=== PATIENT | male | born 1975 | race Caucasian/White ===

== ENCOUNTER → 2021-08-14 19:03 | Outpatient (CLI) | payer BC, SELFPAY ==
[2021-08-14 19:30] LABS: Adenovirus,PCR Not Detected (NotDetected); Bordetella Pertussis Not Detected (NotDetected); Chlamydophila Pneumoniae, PCR Not Detected (NotDetected); Coronavirus 19, PCR Not Detected (NotDetected); Coronavirus 229E Not Detected (NotDetected); Coronavirus NL63 Not Detected (NotDetected); Coronavirus OC43 Not Detected (NotDetected); Coronovirus HKU1,PCR Not Detected (NotDetected); Human Metapneumovirus Not Detected (NotDetected); Influenza A, PCR Not Detected (NotDetected); Influenza AH1, 2009 Not Detected (NotDetected); Influenza AH1, PCR Not Detected (NotDetected); Influenza AH3,PCR Not Detected (NotDetected); Influenza B, PCR Not Detected (NotDetected); Mycoplasma Pneumoniae, PCR Not Detected (NotDetected); Parainfluenza 1, PCR Not Detected (NotDetected); Parainfluenza 2, PCR Not Detected (NotDetected); Parainfluenza 3, PCR Not Detected (NotDetected); Parainfluenza 4, PCR Not Detected (NotDetected); Respiratory Syncytial Virus Not Detected (NotDetected); Rhinovirus/Enterovirus Not Detected (NotDetected)
== END ==
PROVIDERS: PCP Family Medicine; Visit Provider Family Medicine
DX: Z20.822 Contact with and (suspected) exposure to COVID-19 (principal)
CPT/HCPCS: 87581; 87632; 87798; C9803; U0003; U0005

== ENCOUNTER → 2021-09-15 09:21 | Outpatient (CLI) | payer BC, SELFPAY | PROVIDERS: Visit Provider Nurse Practitioner | DX: U07.1 COVID-19 (principal) | CPT/HCPCS: C9803; U0003; U0005 ==

== ENCOUNTER 2025-03-11 19:13 | Observation (INO) | payer BC, SELFPAY ==
[2025-03-11 19:28] VITALS: BP 174/106; PULSE 118; RESP 16; TEMP 37.1; O2SAT 95; BMI 38.9
--- NOTE | 2025-03-11 19:37 | CT_ITS ---
PROCEDURE INFORMATION: Exam: CT Abdomen And Pelvis With Contrast Exam date and time: 03/11/2025 8:51 PM Age: 49 years old Clinical indication: Abdominal pain; Additional info: Left sided abdominal pain TECHNIQUE: Imaging protocol: Computed tomography of the abdomen and pelvis with contrast. Radiation optimization: All CT scans at this facility use at least one of these dose optimization techniques: automated exposure control; mA and/or kV adjustment per patient size (includes targeted exams where dose is matched to clinical indication); or iterative reconstruction. Contrast material: ISOVUE; Contrast volume: 75 ml; Contrast route: IV; COMPARISON: No relevant prior studies available. FINDINGS: Lungs: Imaging through the visualized lung gillespie demonstrates mild bibasilar subsegmental atelectasis. Liver: Moderate diffuse hepatic steatosis is identified. Gallbladder and biliary ducts: Normal. No calcified stones. No ductal dilation. Pancreas: The pancreas is normal. Spleen: The spleen is normal. Adrenal glands: The adrenal glands appear within normal limits. Kidneys and ureters: The kidneys are normal. 1 mm nonobstructing stone right kidney. Stomach and bowel: There are changes of acute diverticulitis involving the sigmoid colon . No evidence of perforation or abscess. Appendix: No evidence of appendicitis. Intraperitoneal space: No free air. No evidence for focal fluid collection or ascites. No evidence for omental thickening. Vasculature: Unremarkable. No abdominal aortic aneurysm. Lymph nodes: Unremarkable. No enlarged lymph nodes. Urinary bladder: The bladder appears within normal limits. No wall thickening. Reproductive: Unremarkable as visualized. Bones/joints: The regional skeletal structures appear within normal limits for age. Soft tissues: Unremarkable. IMPRESSION: There are changes of acute diverticulitis involving the sigmoid colon. No evidence of perforation or abscess.
--- NOTE | 2025-03-11 19:39 | ED_ITS ---
<Statement entered by Alma Rosales DO - 03/12/25 00:00> I was consulted by the GINA, and we discussed the complexity of the problems being addressed. I approved the treatment and management plan for this patient's care in the emergency department, thus performing a substantive portion of the medical decision making. I independently interpreted CT scan prior to radiology read and noted significant diverticulitis with a lot of fat stranding but no evidence of perforation or abscess. White blood cell count is elevated, patient remains tachycardic and significant pain after pain control was administered IV. Given this, I feel he would benefit from admission. I started him on IV Zosyn and ordered maintenance IV fluids. I had an interactive discussion with Dr. Guillaume who admitted the patient in stable condition Alma Rosales DO Discharge Plan Disposition Chief Complaint: Abdominal Pain Referrals Follow up/Referrals: Darrel Guillaume MD [Primary Care Provider, Medical] - See instructions Instructions Patient Instructions: DI for Acute Abdominal Pain Print Language Print Language: Kazakh Discharge ED Provider: Alma Rosales General Adult HPI <Veronica Calhoun (ED), PULMONARY PHYSICAL THERAPIST - Last Filed: 03/11/25 21:50> General Chief complaint: Abdominal Pain Stated complaint: Stomach pain,Nausea Time Seen by Provider: 03/11/25 19:30 Mode of Arrival: Family Vehicle Source of Information: Patient Description of Symptoms (Recalled from ER Triage Doc. by RN): Abd pain Pt presents to the ED with c/o LLQ abd pain accompanied by nausea. Pt reports that he was getting up fropm the couch and felt something pop in his abd. History of Present Illness HPI narrative: 49-year-old male presents to the ED today with complaint of the left lower quadrant abdominal pain. He also has nausea. He says he got up from the couch and felt something pop and immediately had this abdominal pain. He says he had abdominal pain earlier today but got up and had normal bowel movement and felt better and then this left side popped. He says it might be a muscle. But he is unsure. He does have hypertension and took his blood pressure medicine about 5 minutes before he came to the ER. He tells me that he does have whitecoat syndrome and is nervous. He denies any fevers or chills. No vomiting or diarrhea. No other symptoms. Related Data Allergies Allergy/AdvReac Type Severity Reaction Status Date / Time Sulfa (Sulfonamide AdvReac Anaphylaxis Verified 03/11/25 19:33 Antibiotics) [facility] <Veronica Calhoun (ED), PULMONARY PHYSICAL THERAPIST - Last Filed: 03/11/25 21:50> [facility] Disclaimer: The information contained in this section may have been updated after the patient was seen, as this information can be updated by other users. Medical History (Updated 03/11/25 @ 19:34 by Cydney Salomon RN) Hypertension Surgical History (Updated 03/11/25 @ 19:34 by Cydney Salomon RN) History of appendectomy Social History Smoking Status: Never smoker alcohol intake: never current occupational status: other Travel in the last 8 weeks?: None <Veronica Calhoun (ED), PULMONARY PHYSICAL THERAPIST - Last Filed: 03/11/25 21:50> ROS Obtained: Yes Systems reviewed as appropriate & no additional complaints except as documented Constitutional Constitutional: Reports as per HPI Physical Exam <Veronica Calhoun (ED), PULMONARY PHYSICAL THERAPIST - Last Filed: 03/11/25 21:50> General General appearance: alert, anxious and in distress Head Head exam: atraumatic and normocephalic Eye Eye exam: Present normal appearance, PERRL and EOMI ENT ENT exam: Present normal oropharynx and mucous membranes moist Neck Neck exam: Present full ROM and trachea midline Respiratory Respiratory exam: Present normal lung sounds bilaterally Cardiovascular Cardiovascular exam: Present normal rhythm, tachycardia, normal heart sounds, +S1 and +S2 Abdominal Exam Abdominal exam: Present soft, tenderness (Left lower quadrant) and normal bowel sounds Extremities Exam Extremities exam: Present normal inspection, full ROM and normal capillary refill Neurological Exam Neurological exam: Present alert, oriented X3 and normal gait Skin Skin exam: Present warm, dry and intact Medical Decision Making <Veronica Calhoun (ED), PULMONARY PHYSICAL THERAPIST - Last Filed: 03/11/25 21:50> Medical Records Medical records reviewed: Yes I reviewed the patient's medical records. Screening: Per USPSTF and CDC recommendations, given the prevalence of disease in our region, it is our hospital?s policy to screen for HIV and viral Hepatitis for all patients aged 18 and over and those with ongoing risk factors. Serafin Inquiry Pt receiving controlled substance: No Serafin was queried for this patient: No Vital Signs: 03/11/25 19:28 03/11/25 20:02 Temperature 98.8 F Temperature Source Oral Pulse Rate 103 H Pulse Rate [Right] 118 H Respiratory Rate 16 Blood Pressure [Right Arm] 174/106 H Blood Pressure Mean [Right Arm] 128 Blood Pressure Source [Right Arm] Automatic Cuff Blood Pressure Position [Right Arm] Sitting 02 Sat by Pulse Oximetry 95 94 L Oxygen Delivery Method Room Air Lab Data Lab Results 03/11/25 19:55: WBC 15.4 H, RBC 5.14, Hgb 15.4, Hct 44.3, MCV 86.2, MCH 30.0, MCHC 34.8, RDW 12.7, Plt Count 210, MPV 9.7, Neut % (Auto) 82.6 H, Lymph % (Auto) 8.3 L, [place] % (Auto) 8.1, Eos % (Auto) 0.3, Baso % (Auto) 0.2, Neut # (Auto) 12.7 H, Lymph # (Auto) 1.3, [place] # (Auto) 1.2 H, Eos # (Auto) 0.0, Baso # (Auto) 0.0, ESR 18, Sodium 135 L, Potassium 4.0, Chloride 97 L, Carbon Dioxide 23, Anion Gap 19.0 H, BUN 18, Creatinine 0.90, Estimated Creat Clear 174, Estimated GFR 89, Est GFR ( Amer) 108, Glucose 152 H, Calcium 9.9, Magnesium 1.6, Total Bilirubin 1.3, AST 33, ALT 47, Alkaline Phosphatase 77, Troponin I < 0.01, C-Reactive Protein 39.8 H, Total Protein 8.2, Albumin 4.9, G lobulin 3.3 H, Albumin/Globulin Ratio 1.5, Lipase 99, HCV Ab REY w/Rflx PCR Qn Negative, HIV Ag/Ab Combo Qual Negative 03/11/25 21:15: Urine Color Yellow, Urine Appearance Clear, Urine pH 6.0, Ur Specific [place] <= 1.005, Urine Protein Negative, Urine Glucose (UA) Negative, Urine Ketones Trace, Urine Blood Negative, Urine Nitrate Negative, Urine Bilirubin Negative, Urine Urobilinogen 0.2, Ur Leukocyte Esterase Negative 03/11/25 19:55 03/11/25 19:55 Orders (Tests/Meds): ED MEDICATIONS Generic Name Dose Route Start Last Admin Trade Name Stacy PRN Reason Stop Dose Admin Morphine Sulfate 4 mg 03/11/25 21:43 Morphine 4mg/Ml Syringe IV 03/11/25 21:44 ONCE ONE Sodium Chloride 10 ml 03/11/25 20:50 03/11/25 20:51 Sodium Chloride 0.9% 10ml Syr (Rad Only) IV 04/10/25 20:49 10 ml NEEDED PRN Administration Maintain IV Site Discontinued Medications Generic Name Dose Route Start Last Admin Trade Name Stacy PRN Reason Stop Dose Admin Sodium Chloride 1,000 mls @ 999 mls/hr 03/11/25 19:36 03/11/25 19:59 Sod Chlor 0.9% 1000ml Bag IV 03/11/25 20:36 999 mls/hr .Q1H1M ONE Administration Iopamidol 75 ml 03/11/25 20:50 03/11/25 20:51 Iopamidol-370 (76%);100ml Bottle IV 03/11/25 20:51 75 ml ONCE ONE Administration Ketorolac Tromethamine 30 mg 03/11/25 19:36 03/11/25 19:58 Ketorolac 30mg/Ml Vial IV 03/11/25 19:37 30 mg ONCE ONE Administration Ondansetron HCl 4 mg 03/11/25 19:36 03/11/25 20:00 Ondansetron 4mg/2ml Vial IV 03/11/25 19:37 4 mg ONCE ONE Administration ORDERS Category Date Time Status CT abdomen pelvis w con Stat Cat Scan 03/11/25 19:37 Taken CBC [Complete Blood Count Auto Diff] Stat Lab 03/11/25 19:55 Completed CRP [C-Reactive Protein] Stat Lab 03/11/25 19:55 Completed Comprehensive Metabolic Panel Stat Lab 03/11/25 19:55 Completed Erythrocyte Sedimentation Rate Stat Lab 03/11/25 19:55 Completed HIV Combo Stat Lab 03/11/25 19:55 Received Hepatitis C Ab Qual. W/ RFX Stat Lab 03/11/25 19:55 Received Lipase Stat Lab 03/11/25 19:55 Completed Magnesium Stat Lab 03/11/25 19:55 Completed Trop I [Troponin I] Stat Lab 03/11/25 19:55 Completed Troponin I Q3H Lab 03/11/25 22:45 Ordered Troponin I Q3H Lab 03/12/25 01:45 Ordered Urinalysis and Microscopic Stat Lab 03/11/25 21:15 Results Medical Decision Narrative: patient is a 49-year-old male presenting to the emergency department for evaluation of left-sided abdominal pain. Patient is hemodynamically stable, however slightly elevated blood pressure heart rate is elevated due to pain and nontoxic-appearing upon arrival, afebrile. Differential diagnosis includes diverticulitis, muscle pull, gastritis, enteritis, among other things. Workup will be conducted with hematologic labs, specific imaging, . Initial inventions include crystalloid bolus, analgesics. Initial workup reviewed by me hematologic labs are remarkable for elevated white count at 15.4. Imaging informally interpreted by me and remarkable for what appears to be diverticulitis. I am still waiting on the formal imaging read. Have discussed this case with Dr. Rosales she will be taking over care. <Alma Rosales, DO - Last Filed: 03/11/25 21:39> Vital Signs: 03/11/25 19:28 03/11/25 20:02 Temperature 98.8 F Temperature Source Oral Pulse Rate 103 H Pulse Rate [Right] 118 H Respiratory Rate 16 Blood Pressure [Right Arm] 174/106 H Blood Pressure Mean [Right Arm] 128 Blood Pressure Source [Right Arm] Automatic Cuff Blood Pressure Position [Right Arm] Sitting 02 Sat by Pulse Oximetry 95 94 L Oxygen Delivery Method Room Air Lab Data Lab Results 03/11/25 19:55: WBC 15.4 H, RBC 5.14, Hgb 15.4, Hct 44.3, MCV 86.2, MCH 30.0, MCHC 34.8, RDW 12.7, Plt Count 210, MPV 9.7, Neut % (Auto) 82.6 H, Lymph % (Auto) 8.3 L, [place] % (Auto) 8.1, Eos % (Auto) 0.3, Baso % (Auto) 0.2, Neut # (Auto) 12.7 H, Lymph # (Auto) 1.3, [place] # (Auto) 1.2 H, Eos # (Auto) 0.0, Baso # (Auto) 0.0, ESR 18, Sodium 135 L, Potassium 4.0, Chloride 97 L, Carbon Dioxide 23, Anion Gap 19.0 H, BUN 18, Creatinine 0.90, Estimated Creat Clear 174, Estimated GFR 89, Est GFR ( Amer) 108, Glucose 152 H, Calcium 9.9, Magnesium 1.6, Total Bilirubin 1.3, AST 33, ALT 47, Alkaline Phosphatase 77, Troponin I < 0.01, C-Reactive Protein 39.8 H, Total Protein 8.2, Albumin 4.9, G lobulin 3.3 H, Albumin/Globulin Ratio 1.5, Lipase 99, HCV Ab REY w/Rflx PCR Qn Negative, HIV Ag/Ab Combo Qual Negative 03/11/25 21:15: Urine Color Yellow, Urine Appearance Clear, Urine pH 6.0, Ur Specific [place] <= 1.005, Urine Protein Negative, Urine Glucose (UA) Negative, Urine Ketones Trace, Urine Blood Negative, Urine Nitrate Negative, Urine Bilirubin Negative, Urine Urobilinogen 0.2, Ur Leukocyte Esterase Negative Orders (Tests/Meds): ED MEDICATIONS Generic Name Dose Route Start Last Admin Trade Name Freq PRN Reason Stop Dose Admin Morphine Sulfate 4 mg 03/11/25 21:43 Morphine 4mg/Ml Syringe IV 03/11/25 21:44 ONCE ONE Sodium Chloride 10 ml 03/11/25 20:50 03/11/25 20:51 Sodium Chloride 0.9% 10ml Syr (Rad Only) IV 04/10/25 20:49 10 ml NEEDED PRN Administration Maintain IV Site Discontinued Medications Generic Name Dose Route Start Last Admin Trade Name Freq PRN Reason Stop Dose Admin Sodium Chloride 1,000 mls @ 999 mls/hr 03/11/25 19:36 03/11/25 19:59 Sod Chlor 0.9% 1000ml Bag IV 03/11/25 20:36 999 mls/hr .Q1H1M ONE Administration Iopamidol 75 ml 03/11/25 20:50 03/11/25 20:51 Iopamidol-370 (76%);100ml Bottle IV 03/11/25 20:51 75 ml ONCE ONE Administration Ketorolac Tromethamine 30 mg 03/11/25 19:36 03/11/25 19:58 Ketorolac 30mg/Ml Vial IV 03/11/25 19:37 30 mg ONCE ONE Administration Ondansetron HCl 4 mg 03/11/25 19:36 03/11/25 20:00 Ondansetron 4mg/2ml Vial IV 03/11/25 19:37 4 mg ONCE ONE Administration ORDERS Category Date Time Status CT abdomen pelvis w con Stat Cat Scan 03/11/25 19:37 Taken CBC [Complete Blood Count Auto Diff] Stat Lab 03/11/25 19:55 Completed CRP [C-Reactive Protein] Stat Lab 03/11/25 19:55 Completed Comprehensive Metabolic Panel Stat Lab 03/11/25 19:55 Completed Erythrocyte Sedimentation Rate Stat Lab 03/11/25 19:55 Completed HIV Combo Stat Lab 03/11/25 19:55 Received Hepatitis C Ab Qual. W/ RFX Stat Lab 03/11/25 19:55 Received Lipase Stat Lab 03/11/25 19:55 Completed Magnesium Stat Lab 03/11/25 19:55 Completed Trop I [Troponin I] Stat Lab 03/11/25 19:55 Completed Troponin I Q3H Lab 03/11/25 22:45 Ordered Troponin I Q3H Lab 03/12/25 01:45 Ordered Urinalysis and Microscopic Stat Lab 03/11/25 21:15 Results ECG Data Tracing #1: I reviewed this ECG and interpreted as documented below: Sinus tachycardia with a ventricular rate of [address] changes concerning for ischemia. Moderate intraventricular conduction delay ECG initial impression date: 03/11/25 ECG initial impression time: 19:48 Critical Care <Veronica Calhoun (ED), PULMONARY PHYSICAL THERAPIST - Last Filed: 03/11/25 21:50> Critical Care Time Critical Care Time: No
--- NOTE | 2025-03-11 19:46 | ECG_ITS ---
APPROVED REPORT Exam: Resting ECG HR:102 bpm ECG Measurements Heart Rate 102 AXES SC 195 P 44 QRSd 113 QRS 63 QT 329 T 35 QTc 388 Conclusion SINUS TACHYCARDIA MODERATE INTRAVENTRICULAR CONDUCTION DELAY [110+ ms QRS DURATION] No STEMI Electronically signed by : SERGIO BUSBY, 03/12/2025 00:09:44
[2025-03-11] MEDS: KETOROLAC 30MG/ML VIAL 30 MG IV (19:58)
[2025-03-11] MEDS: 0.9 % SODIUM CHLORIDE 1000ML 1,000 ML 999 ML IV (19:59)
[2025-03-11] MEDS: ONDANSETRON 4MG/2ML VIAL 4 MG IV (20:00)
[2025-03-11 20:02] VITALS: PULSE 103; O2SAT 94
[2025-03-11 20:06] LABS: Hematocrit 44.3 % (42.0-52.0); Hemoglobin 15.4 g/dL (14.1-18.0); Immature Granulocytes % 0.5 %; Mean Corpuscular HGB Conc 34.8 g/dL (31.8-35.4); Mean Corpuscular Hemoglobin 30.0 pg (27.0-31.2); Mean Corpuscular Volume 86.2 fl (80-94); Nucleated Red Blood Cells % 0 %; Platelet Count 210 K/mm3 (142-424); Red Blood Count 5.14 M/mm3 (4.60-6.20); Red Cell Distribution Width-SD 39.7 fL; White Blood Count 15.4 K/mm3 (4.8-10.8)
[2025-03-11 20:20] LABS: Alanine Aminotransferase 47 U/L (12-78); Albumin Level 4.9 g/dl (3.5-5.0); Albumin/Globulin Ratio 1.5 (1.1-1.8); Alkaline Phosphatase 77 U/L (38-126); Anion Gap 19.0 mEq/L (5-15); Aspartate Amino Transferase 33 U/L (17-59); Bilirubin,Total 1.3 mg/dl (0.2-1.3); Blood Urea Nitrogen 18 mg/dl (9-20); Calcium 9.9 mg/dl (8.4-10.2); Carbon Dioxide 23 mmol/L (22.0-30.0); Chloride 97 mmol/L (98-107); Creatinine Clearance Estimated 174 mL/min (50-200); Creatinine,Serum 0.90 mg/dl (0.66-1.25); Estimated Glomerular Filt Rate 89 ml/min (>60); GFR (African American) 108 ML/MIN (>60); Globulin 3.3 g/dL (1.3-3.2); Glucose 152 mg/dl (74-100); Lipase 99 U/L (23-300); Magnesium 1.6 mg/dl (1.6-2.3); Potassium 4.0 mmoL/L (3.5-5.1); Sodium 135 mmol/L (136-145); Total Protein,Serum 8.2 g/dl (6.3-8.2)
[2025-03-11 20:24] LABS: C-Reactive Protein 39.8 mg/L (0-4)
[2025-03-11 20:34] LABS: Troponin I < 0.01 ng/ml (0.00-0.034)
[2025-03-11] MEDS: IOPAMIDOL-370 (76%);100ML BOTTLE 75 ML IV (20:51)
[2025-03-11] MEDS: SODIUM CHLORIDE 0.9% 10ML SYR (RAD ONLY) 10 ML IV (20:51)
[2025-03-11 21:31] LABS: Microscopic, Urine URINE MICROSCOPIC (MICROSCOPIC)
[2025-03-11 21:40] LABS: Bilirubin,Urine Negative (Negative); Color,Urine YELLOW (Yellow); Glucose,Urine (UA) Negative (Negative); Ketones,Urine TRACE (Negative); Leukocyte Esterase,Urine Negative (Negative); PH,Urine 6.0 (5.0-8.5); Protein,Urine Negative (Negative); Specific Gravity, Urine <= 1.005 (1.005-1.030); Urobilinogen,Urine 0.2 EU/dl (0.2)
[2025-03-11 21:49] LABS: Hepatitis C Ab Qual. W/ RFX NEGATIVE (Negative)
[2025-03-11 21:53] LABS: Bacteria,Urine Trace /lpf; WBC,Urine Occasional #/hpf (0-3)
[2025-03-11] MEDS: MORPHINE 4MG/ML SYRINGE 4 MG IV ×2 (21:54→23:33)
[2025-03-11] MEDS: PIPERACILLIN/TAZO 3.375 GM in 0.9 % SODIUM CHLORIDE 50 ML IV (23:12)
--- NOTE | 2025-03-11 23:14 | PC.NURSE ---
Report given to Kristie CHILDS Pt transported to inpatient unit via wheelchair by [employer] COACH IV infusing without difficulty
[2025-03-11 23:16] VITALS: BP 143/91; PULSE 104; RESP 20; TEMP 37.1; O2SAT 97
--- NOTE | 2025-03-11 23:23 | PC.NURSE ---
Samia arrived to floor via wheelchair from ED at 23:18.
[2025-03-11] MEDS: LACTATED RINGERS 1000ML 1,000 ML 100 ML IV (23:33)
[2025-03-11 23:43] VITALS: BP 141/96; PULSE 102; RESP 16; TEMP 36.8; O2SAT 94; BMI 39.3
[2025-03-12 00:09] LABS: Troponin I < 0.01 ng/ml (0.00-0.034)
[2025-03-12 02:48] LABS: Troponin I < 0.01 ng/ml (0.00-0.034)
[2025-03-12 04:00] VITALS: BP 141/88; PULSE 98; RESP 16; TEMP 36.9; O2SAT 96; BMI 38.8
--- NOTE | 2025-03-12 05:03 | PC.NURSE ---
Alert and oriented. Complained of pain one time, treated per mar. Fluids running. No other complaints. at bedside. Abdomen soft and tender to LLQ. Call light in reach.
[2025-03-12] MEDS: MORPHINE 4MG/ML SYRINGE 4 MG IV (05:20)
[2025-03-12] MEDS: PIPERACILLIN/TAZO 3.375 GM in 0.9 % SODIUM CHLORIDE 50 ML IV ×2 (06:48→12:44)
[2025-03-12 08:00] VITALS: BP 141/79; PULSE 92; RESP 16; TEMP 36.7; O2SAT 94
--- NOTE | 2025-03-12 08:00 | HMH.PHAINT1 ---
Pharmacy Intervention Comments: MEDICATION RECONCILIATION COMPLETED ON PATIENT USING EXTERNAL FILL HISTORY FROM PHARMACY. -CECILE MCGRAW, REINAD
--- NOTE | 2025-03-12 08:53 | EXP.HP ---
History of Present Illness *Admission Date: 03/12/25 *Reason for visit:: Abdominal pain *History of present illness: Mr. Boykin is a 48-year-old male with a history of hypertension and hemorrhoids who presented to [facility] emergency room for evaluation after experiencing right lower quadrant abdominal pain. He is describes it as a stabbing-like pain. He was somewhat nauseated but did not vomit. He describes normal bowel movements after being started on a stool softener for treatment with his hemorrhoids. The pain persisted and thus he came to the emergency room. With evaluation in the emergency room he was found on CT scan to have diverticulitis. White blood cell count elevated at 15,400 with a hemoglobin of 15.4 hematocrit of 44.3. Electrolytes with sodium of 135 potassium 4 BUN is 18 and creatinine is 0.9. He received several doses of morphine. He was then admitted for further evaluation and treatment. This a.m. after evaluation patient is somewhat better with less pain. He has recently received a dose of IV morphine. He denies any nausea at present. He has not vomited. He remains NPO. He has been placed on piperacillin. [facility] Disclaimer: The information contained in this section may have been updated after the patient was seen, as this information can be updated by other users. Medical History (Updated 03/12/25 @ 09:18 by Tonia Dela Cruz APRN) Hypertension Surgical History (Updated 03/11/25 @ 19:34 by Cydney Salomon RN) History of appendectomy Family History (Updated 03/12/25 @ 09:09 by Tonia Dela Cruz APRN) Other Adopted Social History (Updated 03/11/25 @ 23:49 by Kristie Orta RN) Smoking Status: Never smoker alcohol intake: never current occupational status: retired Travel in the last 8 weeks?: None Have you lived/traveled outside [place] in past 30 days?: No Contact w/someone who lives/traveled outside [place] past 30 days?: No Exposure to someone with infectious disease in past 14 days?: No Do you have a fever (greater than 100.4 F or 38 C)?: No Have you tested positive for COVID-19?: No Exposed to someone with COVID-19 in past 14 days?: No Do you have a sore throat?: No Do you have a cough?: No Do you have any weakness?: No Are you experiencing any nausea/vomitting?: No Do you have any diarrhea?: No Are you experiencing any unusual bleeding?: No Do you have any muscle aches/pain?: No Do you have any abdominal pain?: No Are you experiencing loss of taste or smell?: No Other Medical History Have you received the Flu Vaccine for this season: No Have you received the Pneumonia Vaccine: No Review of Systems Constitutional Constitutional: Reports fever(s) and Denies headache(s) Eyes Eyes: Denies change in vision ENT Ears, Nose, Mouth, and Throat: Denies dizziness, Denies otalgia, Denies headache(s), Denies nasal congestion, Denies nasal discharge, Denies post nasal drip, Denies sore throat and Denies vertigo *Cardiovascular Cardiovascular: Denies chest pain and Denies dyspnea *Respiratory Respiratory: Denies cough and Denies dyspnea *Gastrointestinal Gastrointestinal: Reports abdominal pain, Denies change in stool character, Denies constipation, Denies dyspepsia, Denies hematemesis, Denies hematochezia, Denies loose stools, Denies melena, Reports nausea and Reports vomiting *Genitourinary Genitourinary: Denies difficulty urinating *Musculoskeletal Musculoskeletal: Denies abnormal gait and Denies arthralgias *Neurologic Neurologic: Denies abnormal gait, Denies convulsions, Denies dizziness, Denies headache(s) and Denies vertigo Meds Home Medications and Allergies Home Medications ?Medication ?Instructions ?Recorded ?Confirmed ?Type escitalopram oxalate 5 mg tablet 5 mg PO DAILY 03/11/25 03/11/25 History lisinopril 10 mg tablet 10 mg PO DAILY 03/11/25 03/11/25 History amoxicillin 875 mg-potassium 1 tab PO BID #20 tabs 03/12/25 Rx clavulanate 125 mg tablet metronidazole 500 mg tablet 500 mg PO BID 10 days #20 tabs 03/12/25 Rx New Prescriptions to Start Prescriptions: amoxicillin-pot clavulanate [place],Darrel metronidazole [place],Darrel Allergies Allergy/AdvReac Type Severity Reaction Status Date / Time Sulfa (Sulfonamide AdvReac Anaphylaxis Verified 03/11/25 19:33 Antibiotics) Exam Data for Last 24 hours Vital signs and Labs for Last 24 Hours: Temp Pulse Resp BP Pulse Ox O2 Del Method 98.4 F 98 H 16 141/88 H 96 Room Air 03/12/25 04:00 03/12/25 04:00 03/12/25 04:00 03/12/25 04:00 03/12/25 04:00 03/12/25 06:39 Laboratory Results - last 24 hr 03/11/25 19:55: WBC 15.4 H, RBC 5.14, Hgb 15.4, Hct 44.3, MCV 86.2, MCH 30.0, MCHC 34.8, RDW 12.7, Plt Count 210, MPV 9.7, Neut % (Auto) 82.6 H, Lymph % (Auto) 8.3 L, [place] % (Auto) 8.1, Eos % (Auto) 0.3, Baso % (Auto) 0.2, Neut # (Auto) 12.7 H, Lymph # (Auto) 1.3, [place] # (Auto) 1.2 H, Eos # (Auto) 0.0, Baso # (Auto) 0.0, ESR 18, Sodium 135 L, Potassium 4.0, Chloride 97 L, Carbon Dioxide 23, Anion Gap 19.0 H, BUN 18, Creatinine 0.90, Estimated Creat Clear 174, Estimated GFR 89, Est GFR ( Amer) 108, Glucose 152 H, Calcium 9.9, Magnesium 1.6, Total Bilirubin 1.3, AST 33, ALT 47, Alkaline Phosphatase 77, Troponin I < 0.01, C-Reactive Protein 39.8 H, Total Protein 8.2, Albumin 4.9, Globulin 3.3 H, Albumin/Globulin Ratio 1.5, Lipase 99, HCV Ab REY w/Rflx PCR Qn Negative, HIV Ag/Ab Combo Qual Negative 03/11/25 21:15: Urine Color Yellow, Urine Appearance Clear, Urine pH 6.0, Ur Specific [place] <= 1.005, Urine Protein Negative, Urine Glucose (UA) Negative, Urine Ketones Trace, Urine Blood Negative, Urine Nitrate Negative, Urine Bilirubin Negative, Urine Urobilinogen 0.2, Ur Leukocyte Esterase Negative, Urine WBC Occasional, Ur Squamous Epith Cells 3-5, Urine Bacteria Trace 03/11/25 23:31: Troponin I < 0.01 03/12/25 01:54: Troponin I < 0.01 I & O for Last 24 hours: Intake & Output 03/09/25 03/10/25 03/11/25 03/12/25 11:59 11:59 11:59 11:59 Intake Total 562 / 562 Output Total 0 / 0 Balance 562 / 562 Weight 277 lb 5 oz Constitutional Constitutional: no acute distress *Routine HEENT Exam Head: Present normocephalic and atraumatic Eye: Present PERRL; Absent conjunctival icterus, scleral injection or conjunctivae pink ENT: Present mucous membranes moist and oropharynx clear *Routine Neck Exam Neck: Present supple; Absent carotid bruit, lymphadenopathy or thyromegaly *Routine Respiratory Exam Respiratory: Present CTA bilaterally (Anteriorly and posteriorly) *Routine Cardiovascular Exam Cardiovascular: Present RRR *Routine Abdominal Exam Abdominal: Present normoactive bowel sounds and tenderness (Left lower quadrant) *Routine Rectal Exam Rectal:: deferred *Routine Genitalia Exam Genitalia:: deferred *Routine Extremities Exam Extremities: Absent edema *Routine Neurological Exam Neurological: Present alert and oriented X3 Assessment and Plan *Assessment and plan (1) Diverticulitis: Status: Acute Category: Medical Code(s): K57.92 - Diverticulitis of intestine, part unspecified, without perforation or abscess without bleeding (2) Hypertension: Status: Acute Category: Medical Code(s): I10 - Essential (primary) hypertension Plan Pain management. GI rest. Continue with piperacillin. IV fluids. Dr. Guillaume entry - Saw patient twice today. His pain is well controlled, he is tolerating a full liquid diet and is anxious to go home. OK to discharge with Augmentin and Flagyl as treatment, low residue diet, office f/u in 1 week.
[2025-03-12] MEDS: IBUPROFEN 600 MG TABLET PO (09:06)
[2025-03-12] MEDS: LISINOPRIL 10MG TABLET 10 MG PO (09:07)
[2025-03-12] MEDS: LACTATED RINGERS 1000ML 1,000 ML 100 ML IV (10:50)
[2025-03-12 12:00] VITALS: BP 129/85; PULSE 86; RESP 18; TEMP 36.7; O2SAT 96
--- NOTE | 2025-03-13 10:16 | SW/DCPLANNER ---
Spoke with patient on the phone. Patient stated that he is doing well. Patient stated that he is aware of his upcoming appointment. Patient stated that he was able to get his new medicine picked up from clinic pharmacy. Patient stated that he has no concerns or questions at this time. Luca Hurley
--- NOTE | 2025-03-18 23:53 | EXP.DC.SUM ---
General Admission date:: 03/11/25 Discharge date: 03/12/25 HPI HPI HPI: Mr. Boykin is a 48-year-old male with a history of hypertension and hemorrhoids who presented to [facility] emergency room for evaluation after experiencing right lower quadrant abdominal pain. He is describes it as a stabbing-like pain. He was somewhat nauseated but did not vomit. He describes normal bowel movements after being started on a stool softener for treatment with his hemorrhoids. The pain persisted and thus he came to the emergency room. With evaluation in the emergency room he was found on CT scan to have diverticulitis. White blood cell count elevated at 15,400 with a hemoglobin of 15.4 hematocrit of 44.3. Electrolytes with sodium of 135 potassium 4 BUN is 18 and creatinine is 0.9. He received several doses of morphine. He was then admitted for further evaluation and treatment. This a.m. after evaluation patient is somewhat better with less pain. He has recently received a dose of IV morphine. He denies any nausea at present. He has not vomited. He remains NPO. He has been placed on piperacillin. Hospital Course Hospital Course Hospital Course: The patient was admitted for pain management and GI rest. He was continued on piperacillin and IV fluids. He was seen twice on 03/12/2025 and his pain was well-controlled and he was able to tolerate a full liquid diet. He was anxious to go home and was stable to be discharged on Augmentin and Flagyl as outpatient treatment along with a low residue diet. He will follow-up with Dr. Guillaume. Exam Data for Last 24 hours Vital signs and Labs for Last 24 Hours: Temp Pulse Resp BP Pulse Ox O2 Del Method 98.1 F 86 18 129/85 96 Room Air 03/12/25 12:03/12/25 12:00 03/12/25 12:00 03/12/25 12:00 03/12/25 12:03/12/25 13:00 Narrative: Constitutional Constitutional: no acute distress *Routine HEENT Exam Head: Present normocephalic and atraumatic Eye: Present PERRL; Absent conjunctival icterus, scleral injection or conjunctivae pink ENT: Present mucous membranes moist and oropharynx clear *Routine Neck Exam Neck: Present supple; Absent carotid bruit, lymphadenopathy or thyromegaly *Routine Respiratory Exam Respiratory: Present CTA bilaterally (Anteriorly and posteriorly) *Routine Cardiovascular Exam Cardiovascular: Present RRR *Routine Abdominal Exam Abdominal: Present normoactive bowel sounds and tenderness (Left lower quadrant) *Routine Rectal Exam Rectal:: deferred *Routine Genitalia Exam Genitalia:: deferred *Routine Extremities Exam Extremities: Absent edema *Routine Neurological Exam Neurological: Present alert and oriented X3 DS: Diagnosis Discharge Diagnosis (1) Diverticulitis: Status: Acute Code(s): K57.92 - Diverticulitis of intestine, part unspecified, without perforation or abscess without bleeding (2) Hypertension: Status: Acute Code(s): I10 - Essential (primary) hypertension Meds Home Medications and Allergies Home Medications ?Medication ?Instructions ?Recorded ?Confirmed ?Type escitalopram oxalate 5 mg tablet 5 mg PO DAILY 03/11/25 03/11/25 History lisinopril 10 mg tablet 10 mg PO DAILY 03/11/25 03/11/25 History amoxicillin 875 mg-potassium 1 tab PO BID #20 tabs 03/12/25 Rx clavulanate 125 mg tablet metronidazole 500 mg tablet 500 mg PO BID 10 days #20 tabs 03/12/25 Rx New Prescriptions to Start Prescriptions: amoxicillin-pot clavulanate Darrel Guillaume metronidazole Darrel Guillaume Allergies Allergy/AdvReac Type Severity Reaction Status Date / Time Sulfa (Sulfonamide AdvReac Anaphylaxis Verified 03/11/25 19:33 Antibiotics) Discharge Plan Disposition Patient Disposition: Home, Self-Care Condition: Good Follow up Plan Follow up with: Darrel Guillaume MD [Primary Care Provider, Medical] - 03/19/25 10:00 am Prescriptions/Medication Reconciliation: New amoxicillin-pot clavulanate 875-125 mg tablet 1 tab PO BID Qty: 20 0RF metronidazole 500 mg tablet 500 mg PO BID 10 Days Qty: 20 0RF Continued lisinopril 10 mg tablet 10 mg PO DAILY Patient Comments: TAKE ONE TABLET BY MOUTH EVERY DAY escitalopram oxalate 5 mg tablet 5 mg PO DAILY Patient Comments: TAKE ONE TABLET BY MOUTH EVERY DAY Problem Reconciliation Problems Reviewed?: Yes Patient Discharge Instructions ACTIVITY: Continue current activity DIET: advance to your usual diet Patient Instructions: DI for Diverticulitis, Stop Light Infection Print Language: Cuban Providers Primary Care Provider: Darrel Guillaume Admit Provider: Darrel Guillaume Attending Provider: Darrel Guillaume
== END 2025-03-12 13:45 | disposition home or self-care (01) ==
LOC: ER 22:45 → 2ND 22:56
PROVIDERS: Nurse Practitioner; Admitting Provider Family Medicine; Emergency Provider Emergency Medicine; PCP Family Medicine; Visit Provider Family Medicine
DX: K57.92 Diverticulitis of intestine, part unspecified, without perforation or abscess without bleeding (principal); I10 Essential (primary) hypertension; R00.0 Tachycardia, unspecified; Z88.2 Allergy status to sulfonamides; Z79.899 Other long term (current) drug therapy; D72.829 Elevated white blood cell count, unspecified
CPT/HCPCS: 96361 ×2; 96365; 96375; 96376 ×2; 74177; 80053; 81001; 83690; 83735; 84484; 85025; 85651; 86140; 86803; 87040; 87389; 93005; G0378; J1885; J2270; J2405; J2543; J7030; J7120; Q9967